=== PATIENT | male | born 1990 | race Caucasian/White ===

== ENCOUNTER 2016-09-04 18:27 | Emergency (ER) | payer OTHER ==
[~2016-09-04] VITALS: Ht 185.4 cm; Wt 83.9 kg
[~2016-09-04 18:27] MED LIST: HYDROCODONE-APA1 TA1 PO
[2016-09-04 18:30] VITALS: BP 130/77
[2016-09-04] MEDS ORDERED: BACTRIM DS TAB1 EACH PO (18:32)
[2016-09-04] MEDS ORDERED: ULTRAM 50MG TAB50 MG PO (18:44)
[2016-09-04] MEDS ORDERED: NAPROSYN500 MG PO (18:44)
== END 2016-09-04 18:56 | disposition home or self-care (01) ==
LOC: ER 18:27
DX: L02.412 Cutaneous abscess of left axilla (principal); F17.210 Nicotine dependence, cigarettes, uncomplicated; Z88.6 Allergy status to analgesic agent

== ENCOUNTER 2016-10-02 20:16 | Emergency (ER) | payer OTHER ==
[~2016-10-02 20:16] MED LIST changes: +BACTRIM DS TAB1 EACH PO; +NAPROSYN500 MG PO; +ULTRAM 50MG TAB50 MG PO
[2016-10-02 20:25] VITALS: BP 144/85
== END 2016-10-02 20:58 | disposition left against medical advice (07) ==
LOC: ER 20:16
DX: M54.9 Dorsalgia, unspecified (principal); Z53.21 Procedure and treatment not carried out due to patient leaving prior to being seen by health care provider

== ENCOUNTER 2016-12-07 18:50 | Emergency (ER) | payer OTHER ==
[~2016-12-07] VITALS: Ht 185.4 cm; Wt 81.7 kg
[~2016-12-07 18:50] MED LIST changes: +ZYRTEC10 MG PO
[2016-12-07 19:44] LABS: ABSOLUTE NEUTROPHILS 9.1 thou/uL (1.4-8.2); BASOPHILS 0.6 % (0.0-2.0); EOSINOPHILS 0.3 % (0.0-3.0); HEMATOCRIT 36.7 % (42.0-52.0); HEMOGLOBIN 12.5 gm/dL (14.0-18.0); LYMPHOCYTES 18.9 % (24.0-44.0); MCHC 34.2 g/dL (28.0-37.0); MCV 96.7 fL (80.0-100.0); MONOCYTES 5.6 % (1.0-8.0); PLATELET COUNT 210 thou/uL (150-400); POLYS 74.6 % (36.0-66.0); RBC 3.79 mil/uL (4.50-6.00); RDW 13.6 % (10.5-14.5); WBC 12.3 thou/uL (4.0-11.0)
[2016-12-07 19:45] LABS: MANUAL DIFF NO
[2016-12-07 19:52] LABS: CALCIUM 8.5 mg/dL (8.5-10.1); CREATININE 0.7 mg/dL (0.7-1.3); POTASSIUM 3.7 mmol/L (3.5-5.1)
[2016-12-07 19:57] LABS: ALBUMIN 3.8 g/dL (3.4-5.0); TOTAL BILIRUBIN 0.3 mg/dL (<0.1-1.0); TOTAL PROTEIN 7.1 g/dL (6.4-8.2)
[2016-12-07] MEDS ORDERED: SENNA8.6 MG PO (20:17)
[2016-12-07] MEDS ORDERED: BACTRIM DS TAB1 EACH PO (20:17)
[2016-12-07] MEDS ORDERED: NORCO 5-325 TA1 EACH PO (20:20)
[2016-12-07 20:40] VITALS: BP 117/77
== END 2016-12-07 20:42 | disposition home or self-care (01) ==
LOC: ER 18:50
PROVIDERS: Physician Assistant
DX: L03.113 Cellulitis of right upper limb (principal); F17.210 Nicotine dependence, cigarettes, uncomplicated; F10.99 Alcohol use, unspecified with unspecified alcohol-induced disorder; Z88.6 Allergy status to analgesic agent

== ENCOUNTER 2017-02-06 16:40 | Emergency (ER) | payer OTHER ==
[~2017-02-06] VITALS: Ht 185.4 cm; Wt 81.7 kg
[~2017-02-06 16:40] MED LIST changes: +NORCO 5-325 TA1 EACH PO; +NORFLEX100 MG PO; +PREDNISONE 10 M10 MG PO; +SENNA8.6 MG PO
[2017-02-06 16:55] VITALS: BP 136/79
[2017-02-06] MEDS ORDERED: HYDROCODONE-AP1 EAC6 PO (17:37)
== END 2017-02-06 17:35 | disposition home or self-care (01) ==
LOC: ER 16:40
DX: K08.89 Other specified disorders of teeth and supporting structures (principal); F17.210 Nicotine dependence, cigarettes, uncomplicated; F10.99 Alcohol use, unspecified with unspecified alcohol-induced disorder

== ENCOUNTER 2020-03-02 07:08 | Inpatient (IN) | payer OTHER ==
[~2020-03-02] VITALS: Ht 182.9 cm; Wt 75.3 kg
[2020-03-02] VITALS (7 sets, daily range): BP systolic 79–114; BP diastolic 38–68
[~2020-03-02 07:08] MED LIST changes: +HYDROCODONE-AP1 EAC6 PO
[2020-03-02 07:34] LABS: ABSOLUTE NEUTROPHILS 4.9 thou/uL (1.4-8.2); BASOPHILS 0.5 % (0.0-2.0); EOSINOPHILS 1.3 % (0.0-3.0); HEMATOCRIT 34.8 % (42.0-52.0); HEMOGLOBIN 11.9 gm/dL (14.0-18.0); LYMPHOCYTES 28.1 % (24.0-44.0); MCHC 34.3 g/dL (28.0-37.0); MCV 99.4 fL (80.0-100.0); MONOCYTES 6.9 % (1.0-8.0); PLATELET COUNT 164 thou/uL (150-400); POLYS 63.2 % (36.0-66.0); RDW 13.9 % (10.5-14.5); WBC 7.8 thou/uL (4.0-11.0)
[2020-03-02 07:41] LABS: HCO3 20.8 mmol/L (22.0-26.0); PCO2 36.9 mmHg (35.0-45.0); pH 7.368 (7.360-7.450); sO2 99.8 % (92.0-98.0)
--- NOTE | 2020-03-02 07:43 | NUR ---
SPOKE WITH TRINITY GALEANA AT POISON CONTROL. RECEIVED INFORMATION TO PROVIDE SYMPTOMATIC CARE. RELAYED INFORMATION TO DR. SORTO.
[2020-03-02 07:44] LABS: CALCIUM 7.4 mg/dL (8.5-10.1); CREATININE 0.9 mg/dL (0.7-1.3); POTASSIUM 3.5 mmol/L (3.5-5.1)
[2020-03-02 07:51] LABS: ALBUMIN 2.7 g/dL (3.4-5.0); MAGNESIUM 1.8 mg/dL (1.8-2.4); TOTAL BILIRUBIN 0.4 mg/dL (0.2-1.0); TOTAL PROTEIN 5.1 g/dL (6.4-8.2)
--- NOTE | 2020-03-02 08:59 | EKG ---
[facility] [place] [address] ELECTROCARDIOGRAM REPORT Name: MILANA TA Room #: [facility].#: [id number] Admission: 03/02/20 Attend Phys: Discharge: Date of : 89 Report #: [id number] THIS REPORT FOR: cc: Ksenia Salvador MD, Melanie MD Lundgren,Jovani De León MD [facility] ~ THIS REPORT FOR: //name// [facility] ED Test Date: 2020-03-02 Test Time: 07:13:45 Pat Name: MILANA TA Department: Room: Gender: Nursing Service Administrator: [facility] : 1990 Requested By: Kristopher Carter Order Number: [id number] MD: Jovani Terry Measurements Intervals [place] Rate: 95 P: 71 CO: 151 QRS: 84 QRSD: 104 T: 69 QT: 414 QTc: 521 Interpretive Statements Sinus rhythm Ventricular bigeminy RSR' in V1 or V2, right VCD No previous ECG available for comparison Electronically Signed On 03-02-2020 8:59:33 CDT by Jovani Terry [email or web address] <ELECTRONICALLY SIGNED> By: Jovani Terry MD, [facility] 03/02/20 0859 2 2 Jovani Terry MD, [facility] /EPI
--- NOTE | 2020-03-02 09:43 | NUR ---
ATTEMPTED TO CALL REPORT AT 09:38, ABLE TO GET AHOLD OF RN. RN STATED SHE NEEDED TO CALL PROVIDER AND HELP DESK INTERNSHIP TO DETERMINE IF PT WAS APPROPRIATE FOR CCU INSTEAD OF ICU. CALLED HELP DESK INTERNSHIP GAYLE TO INFORM, STATED SHE WILL CONTACT HOSPITALIST
[2020-03-02 10:48] LABS: URINE BILIRUBIN NEGATIVE (Negative); URINE BLOOD TRACE (Negative); URINE CLARITY CLEAR; URINE COLOR YELLOW; URINE GLUCOSE-RANDOM* NEGATIVE (Negative); URINE KETONES NEGATIVE (Negative); URINE LEUKOCYTES-REFLEX NEGATIVE (Negative); URINE NITRITE-REFLEX NEGATIVE (Negative); URINE PROTEIN (DIPSTICK) NEGATIVE (Negative); URINE SPECIFIC GRAVITY 1.015 (1.005-1.035)
[2020-03-02 10:54] LABS: AMP/METHAMP Negative (Negative); BARBITURATES Negative (Negative); BENZODIAZEPINES POSITIVE (Negative); COCAINE Negative (Negative); METHADONE Negative (Negative); OPIATES Negative (Negative); PCP Negative (Negative)
--- NOTE | 2020-03-02 10:59 | NUR ---
REC PT FROM ED ON CART, REPORTS FROM ED OF NO RESPONSIVENESS SAVE FOR TO PAINFUL STIMULI. SPOKE WITH HOUSE SUPV AND PHYSICIAN IN DEPTH CONCERNING PLACEMENT HERE VS ICU. WAS TOLD WE'LL HAVE A ONE TO ONE SITTER UNTIL DR. MAYO EVALUATES, COMM W/PHYSICIAN TO PUT IN ORDER AND ID CANCEL AFTER DR. MARIA ESTHER KAPLAN, IF APPLICABLE. MANN PRIETO SAID TO USE ONE OUR BAND SALVAGER TEMPORARILY. 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 REMOVED SNEAKERS, HE ASKED FOR SODA, GOT THAT AND WATER, SHOWED HIM BED AND CALL LIGHT CONTROLS YET HIS EYES CLOSED AGAIN AND NOW HE'S SLEEPING. WILL DO ADMISSION WHEN HE'S MORE ALERT AND RESPONSIVE. VS BEING TAKEN, PAPERS WILL BE SIGNED, APPLICABLE. WILL CONTINUE TO MONITOR. SEE SEPARATE INTERVENTIONS FOR ASSESSMENTS.
--- NOTE | 2020-03-02 15:54 | NUR ---
CALLED DR. MENDEZ OFFICE TO ASK IF WE NEED AN AFFIDAVIT ON PT (PER REHEATER), LEFT MESSAGE WITH HER OFFICE WHICH IS ALSO ENDOCRINOLOGY.
--- NOTE | 2020-03-02 16:46 | NUR ---
PT WOKE UP LONG ENOUGH TO ANSWER A FEW QUESTIONS FOR ADMISSION'S BLANK SPOTS/NOT ABLE TO ASSESS. ANSWERS SLOWLY, AND HESITATES. WANTS TO KNOW WHERE HIS CAR IS, STATES HE IS ALMOST HOMELESS, HASN'T HAD AN APPETITE TO EAT LATELY, COMM W/PHYSICIAN ON A DIET ORDER AND POISEN CONTROL ASKS FOR TYELNOL/SALICYLATE LABS. PT STILL IN ONE ON ONE, LETHARGIC YET WATCHING TELEVISION AND DRINKING LIQUIDS, B/P'S STILL LOW, PHYSICIAN AWARE. ENCOURAGED AIDE TO CALL WITH ANY NEEDS PT HAS
--- NOTE | 2020-03-02 17:45 | NUR ---
I have reviewed the documentation by FRANCO BRAND from 03/02/20 to 03/02/20 and I concur with it. KAYLIE AMBRIZ
[2020-03-02] MEDS ORDERED: ALPRAZOLAM XR3 MG PO (18:20)
--- NOTE | 2020-03-02 19:07 | NUR ---
FOUND OUT THERES A FORM CALLED HOSPITAL SITTER JUSTIFICATION NEEDED. COMM W/DR. NAYLOR WELL LVM WITH DR. MAYO. ALSO COMM W/HOUSE SUPV TO SIGN DAY HOUSE SUPV WASN'T AWARE WE JUST FOUND OUT THE NEED FOR THE FORM. GAVE REPORT TO NIGHT RN
[2020-03-03 05:28] VITALS: BP 107/53
--- NOTE | 2020-03-03 05:51 | NUR ---
progress pt remains drowsy vss. slept most of vss, bp wnl. pulse steady and all peripheral pulses progress lungs clear, pt up with assist of one for safety. pt only responded to painful stumulu. vss skin c/d/i no areas of breakdown noted. sitter at bedside. pt slept all noc up to toliet a few times with no difficulty. pt hopes to be transferred to a psych facility for mental health concerns.
--- NOTE | 2020-03-03 08:00 | NUR ---
PT AWAKENS WHEN I SAY HIS NAME. PT STATES HE IS AT [facility] , AND IS ORIENTATED TO SELF. FALLS BACK ASLEEP WHEN ASSESSING PT. SITTER AT BEDSIDE.
[2020-03-03 08:17] VITALS: BP 102/60
--- NOTE | 2020-03-03 08:51 | NUR ---
PT IS AWAKE AND TALKING WITH NURSE. WOULD LIKE TO CONTACT HIS MOTHER AND LET HER KNOW HE IS HERE. TOLD HIM HE CAN CALL HER FROM MY PHONE IF HE WOULD LIKE. STARTING ASKING HOW LONG WE THING HE WILL BE HERE AND IF THEY NEED TO DO ANYMORE TESTS. TOLD HIM IT IS UP TO THE PSYCH DRSandro WHEN HE WILL LEAVE AND SINCE HE IS AWAKE THEY WILL BE ABLE TO EVALUATE HIM. STATES HE WILL CALL HIS MOM LATER AFTER KNOWING MORE INFORMATION.
--- NOTE | 2020-03-03 10:00 | NUR ---
CALLED ANSWERING SERVICE FOR DR. MAYO TO NOTIFIY HER THAT PT IS AWAKE AND CONVERSING PER DR. NAYLOR ON HIS ASSESSMENT.
[2020-03-03 12:21] VITALS: BP 102/63
--- NOTE | 2020-03-03 12:30 | NUR ---
PT ATTEMPTED TO CONTACT MOTHER AND SISTER WITH PHONE IN THE ROOM. NO ANSWER. MESSAGE LEFT BY PT FOR HIS MOTHER.
--- NOTE | 2020-03-03 13:39 | NUR ---
AMBER STATES THAT PTS MOM CALLED BACK AND HE TALKED WITH HER.
--- NOTE | 2020-03-03 15:58 | NUR ---
DR. MAYO IN TO SEE PT
[2020-03-03 17:24] VITALS: BP 111/69
--- NOTE | 2020-03-03 17:41 | NUR ---
PT AWAKEND DURING THE DAY. HAS BEEN COVERSATING. DR. MAYO STATES PT NEEDS TO STAY. PT IS AGREEABLE. AFFIDAVIT ON THE CHART FROM DR. MAYO. STATES IT WILL MOST LIKELY BE THURSDAY BEFORE PT IS TRANSFERRED TO AN INPATIENT PSYCH FACILITY. CONTINUE WITH SITTER. MOTHER OF PATIENT IS ALLOWED TO CALL BUT NO VISITORS AT THIS TIME.
[2020-03-03 20:45] VITALS: BP 111/58
--- NOTE | 2020-03-04 04:19 | NUR ---
PATIENT IS PROGRESSING SLOWLY IN HIS CARE PLAN. VITAL SIGNS STABLE WITH PATIENT HAVING NO COMPLAINTS OF PAIN OR NAUSEA. PATIENT IS FULLY ORIENTED BUT ANXIOUS. HE IS ABLE TO CALL APPROPRIATELY FOR NEEDS. MULTIPLE HOURS OF UNINTERRUPTED SLEEP. PATIENT IS SOFT SPOKEN AND HAD NO INTEREST IN TALKING TO THIS NURSE REGARDING FEELINGS. HE IS ANXIOUS FOR PROBABLE DISCHARGE TO INPATIENT PSYCH FACILITY SOON. PATIENT MONITORED BY SITTER THROUGHOUT SHIFT. CONTINUE PLAN OF CARE.
[2020-03-04 04:42] VITALS: BP 93/52
[2020-03-04 04:48] LABS: CALCIUM 8.1 mg/dL (8.5-10.1); CREATININE 0.8 mg/dL (0.7-1.3); MAGNESIUM 2.2 mg/dL (1.8-2.4); POTASSIUM 3.5 mmol/L (3.5-5.1)
[2020-03-04 08:11] VITALS: BP 94/66
[2020-03-04 12:00] VITALS: BP 108/85
[2020-03-04 15:20] VITALS: BP 106/59
[2020-03-04 16:00] VITALS: BP 131/55
--- NOTE | 2020-03-04 17:31 | NUR ---
ASSUMED CARE OF PT AT SHIFT CHANGE. ASSESSMENTS CHARTED. MEDS GIVEN PER AUG. PT A&OX4. SLEPT A LOT, BUT WHEN AWAKE WAS ALERT AND RESPONDED APPROPRIATELY. NO DISTRESS OR BEHAVIORS OBSERVED DURING SHIFT. SITTER IN ROOM ENTIRE SHIFT. WILL CONTINUE TO MONITOR AND FOLLOW POC.
[2020-03-04 19:18] VITALS: BP 101/68
--- NOTE | 2020-03-05 04:48 | NUR ---
PATIENT IS PROGRESSING SLOWLY IN HIS CARE PLAN. VITAL SIGNS STABLE WITH PATIENT HAVING NO COMPLAINTS OF PAIN OR NAUSEA THROUGHOUT SHIFT. FULLY ALERT AND ORIENTED BUT ANXIOUS, PATIENT IS ABLE TO CALL APPROPRIATELY FOR NEEDS AND PARTICIPATE IN CARE. FALL PRECAUTIONS REMOVED DUE TO PATIENTS INCREASED STRENGTH AND BALANCE WHEN AMBULATING. SITTER WITH PATIENT THROUGHOUT SHIFT WITHOUT INCIDENT. PATIENT IS ANXIOUS FOR EXPECTED DISCHARGE TO FACILITY SOON. CONTINUE PLAN OF CARE.
[2020-03-05 05:26] VITALS: BP 97/58
[2020-03-05 08:15] VITALS: BP 103/83
--- NOTE | 2020-03-05 09:56 | NUR ---
Assess due to pt with possible unintentional wt loss 2-13 lb and decreased po. Admit with SI, xanax overdose. Psych hx. Now eating 100% of meals and likely discharge to inpatient psych soon. Low nutrition risk
--- NOTE | 2020-03-05 16:10 | NUR ---
FAXED REFERRAL TO [facility] RECEIVED CONFIRMATION FAXED REFERRAL TO [facility] RECEIVED CONFIRMATION. FAXED REFERRAL TO [facility] RECEIVED CONFIRMATION FAXED REFERRALL TO [facility] RECEIVED CONFIRMATION SW TO F/U WITH FACILITIES.
--- NOTE | 2020-03-05 17:38 | NUR ---
Patient admits with SI, failed attempt. Patient lives alone in [place]. He reports fired recently from job and seeking employment currently. He has rec inpatient psych treatment in the past at [facility]. Discussed seeking inpatient tx for patient today. Patient does not have health insurance.Referrals to [facility] at capacity. [facility] report may have bed avail. Called [facility] at approx 1600. they both responded they have not reviewed referral at that time. Updated patient. COnt to attempt to seek inpatient tx.
--- NOTE | 2020-03-05 17:43 | NUR ---
Patient to dc home. Phys reports he has no way to dc home he needs transport. Sp with patient, verified address. Arranged [facility] for [facility]. [facility] reports they will be assured patient makes inside fine as patient lives alone. Patients wc in room. HH ordered and patient current with [facility]. DC discharge planner faxed orders. No further needs.
[2020-03-05 18:41] VITALS: BP 111/68
--- NOTE | 2020-03-05 19:54 | NUR ---
RECEIVED PT'S CARE AROUND 0720; PT. ON BED; RESTING WITH EYES CLOSED; EQUAL CHEST RISING NOTICED; SB ON THE MONITOR; DURING AM ASSESSMENT C/O PAIN OVER RLE; PHYSICIAN NOTIFIED; ST. CURRENTLY SMOKER; NICOTINE PATCH REQUESTED; PAIN RE-ASSESSMENT PT. RESTING WITH EYES CLOSED; EDUCATED ABOUT PHONE CALLS; ST. UNDERSTANDING; SB ON THE MONITOR; ABLE TO AMBULATE; ASSESSMENT CHARGED; FOLLOWING POC; PASSED ON REPORT;
--- NOTE | 2020-03-06 03:48 | NUR ---
ASSESSMENT: PT REMAIN ALERT AND ORIENT TIMES FOUR, SOME FORGETFULNESS NOTED. CONVERSATION IS APPROPRIATE. REMAIN CALM AND PLEASANT DURING THE SHIFT. REQUESTED TRAZADONE FOR SLEEP. SLEPT MOST OF THE NIGHT. SITTER REMAINED AT THE BEDSIDE. VSS, AFEBRILE. SR-SB WHEN SLEEPING. DENIES PAIN. INTRIQUED ABOUT IV, EXPLAINED THAT THE IV HAS TO REMAIN IN CASE IT IS NEEDED FOR MEDS. UP WITH SBA. SLOW PROGRESS TOWARDS DC GOALS, WILL CONTINUE TO MONITOR.
[2020-03-06 08:29] VITALS: BP 96/58
--- NOTE | 2020-03-06 15:35 | NUR ---
[facility]. [facility] reports need updated information. Dr Sheth completed updated progress notes faxed to [facility] for review.
--- NOTE | 2020-03-06 16:19 | NUR ---
FAXED UPDATED LABS TO [facility] RECEIVED CONFIRMATION.
--- NOTE | 2020-03-06 18:23 | NUR ---
ASSUMED CARE OF PT AT SHIFT CHANGE. ASSESSMENTS CHARTED. MEDS GIVEN PER AUG. PT A&OX4, NO C/O PAIN. PT CALM AND APPROPRIATE DURING SHIFT. SITTER IN ROOM AT ALL TIMES. PT WANTING TO KNOW WHERE HE WILL BE GOING FOR INPT TX, CM STILL WORKING ON IT. WILL CONTINUE TO MONITOR AND FOLLOW POC.
[2020-03-06 20:15] VITALS: BP 110/63
--- NOTE | 2020-03-07 04:19 | NUR ---
ASSUMED CARE OF PATIENT AT 1900. PATIENT CONTINUES A 1:1 DUE TO SI. PATIENT REQUESTED PRN TRAZADONE AT HS. FIRST DOSE INEFFECTIVE AND ADMINISTERED SECOND DOSE OF TRAZADONE AT PATIENT REQUEST AND ORDERED. PATIENT COMPLIANT WITH CARES AND HAS PLEASANT AFFECT. PATIENT APPEARS TO BE PROGRESSING TOWARDS GOALS.
[2020-03-07 05:47] VITALS: BP 96/52
[2020-03-07 07:23] VITALS: BP 107/58
--- NOTE | 2020-03-07 11:09 | NUR ---
TALKED WITH DR. MAYO, STATES PT CAN CALL THE COURT AND NOTIFY THEM OF HIS INPATIENT STATUS.
--- NOTE | 2020-03-07 13:33 | NUR ---
At this time [facility]. [facility] reports may have bed later today they will review referral sent.
[2020-03-07 15:46] VITALS: BP 115/62
--- NOTE | 2020-03-07 16:35 | NUR ---
PTS MOTHER МАРИЯ CALLED. TALKED WITH HER REGUARDING PTS. SHE STATED THAT SHE HAD COME IN FOR HER SON TO SIGNS SOME THINGS OVER TO HER. I TOLD HER THAT SINCE HE IS HERE UNDER A MENTAL HEALTH CAPACITY HE CAN NOT LEGALLY SIGN ANY PAPERWORK UNTIL HE IS CLEARED BY THE DR. OR DISCHARGED. STATES HER UNDERSTANDING. WOULD LIKE TO TALK WITH DR. MAYO. TOLD HER I WOULD RELAY THE MESSAGE.
--- NOTE | 2020-03-07 16:39 | NUR ---
MESSAGE LEFT FOR DR. MAYO
--- NOTE | 2020-03-07 16:44 | NUR ---
beds cont at capacity updated patient no psych beds avail.
--- NOTE | 2020-03-07 18:16 | NUR ---
NO EVENTS THROUGHT THE DAY. STILL AWAITING PLACEMENT FOR INPATIENT MENTAL HEALTH. PT HAS BEEN PLEASENT. SITTER IN ROOM. PT SHOWERED TODAY. VSS. NO VOICED CONCERNS. TALKED WITH MOM ON THE PHONE TODAY. UPDATED ON PT. SEE PREVIOUS NOTES REGUARDING CONVERSATION.
--- NOTE | 2020-03-07 18:34 | NUR ---
МАРИЯ PTS MOM CALLED AND STRESSED TO ME THAT THE TITLE PROCESSOR TOLD HER THAT THE PTS DAD SUE TA WAS THERE TO SEE HIM TODAY AND HE SHOULD NOT BE VISITING HIM. TOLD МАРИЯ THAT [facility] DID NOT HAVE ANY VISITORS TODAY. SHE THEN STATES WELL THEY TOLD ME THAT SOMEONE WAS IN HIS ROOM. I THEN TOLD HER THAT [facility] HAS HAD A SITTER WITH HIM THAT IS ONE OF OUR STAFF MEMBERS AND NOT THE PTS FATHER SUE. SHE THEN GOES TO STATE, WELL IS THIS PERSON TELLING HIM THAT THEY ARE HIS DAD. MY REPLY TO THE MOTHER WAS THE PATIENT IS ALERT AND ORIENTATED X4, COMPLETELY INTACT AND WOULD KNOW IF HIS FATHER WAS IN THE ROOM WITH HIM OR NOT. МАРИЯ THEN GOES TO SAY, WELL THE GIRL AT THE TITLE PROCESSOR SAID THAT SUE BOLDEN WAS THERE TODAY AND HIS ONLY VISTOR HE CAN HAVE. WENT THROUGH THE CHART AND LOOKED UP PTS DESIGNATED VISITOR. PT HAS NO ONE LISTED DUE TO HIS ADMITTING DIAGNOSES. EXPLAINED TO THE MOM МАРИЯ THAT HE HAS NO VISITORS LISTED OF THIS TIME. I WAS ON THE FLOOR ALL DAY AND SAW NO MALE IN HIS ROOM TODAY WITH HIM. I TOLD HER I WOULD CALL THE TITLE PROCESSOR AND TRY TO FIGURE OUT THE SITUATION. WHEN I CALLED THE ER DESK, NO ONE KNEW WHAT I WAS TALKING ABOUT.
[2020-03-07 19:25] VITALS: BP 113/70
--- NOTE | 2020-03-08 02:00 | NUR ---
ASSUMED CARE OF PATIENT AT 1900. PATIENT CONTINUES ON 1:1. PATIENT HAS NO BEHAVIORS AND IS COOPERATIVE WITH CARES. PATIENT SLEEP IMPROVED WITH NEW TRAZADONE ORDER. WILL CONTINUE TO MONITOR.
[2020-03-08 04:00] VITALS: BP 99/64
[2020-03-08 08:11] VITALS: BP 109/31
--- NOTE | 2020-03-08 15:10 | NUR ---
[facility] and [facility] no beds avail. [facility] unable to accept due to acuity of adult unit. referral to [facility] in [place] and [place] behavioral health unit. They are reviewing. updated patient
--- NOTE | 2020-03-08 16:56 | NUR ---
[facility] is reviewing patient information. May be accepting after hours. IF accepted they will call unit. [employer] form on chart. Chart copied. Request number to fax orders and report. Arrange [employer]. Notify family of dc.
--- NOTE | 2020-03-08 17:05 | NUR ---
PT TALKING WITH MOM ON PHONE. PT IS NEEDING TO SIGN A PIECE OF PAPER STATING THAT HIS MOM CAN GET HIS VEHICLE THAT WAS TOWED. WE WILL GET A NOTEARY HERE TOMORROW FOR HIM TO SIGN A NOTE SO HIS MOTHER CAN GET IT TO THE CAR LOT TO GET HIS CAR.
--- NOTE | 2020-03-08 17:53 | NUR ---
PT AWAITING PLACEMENT FOR INPATIENT MENTAL HEALTH. TALKED WITH МАРИЯ PTS MOTHER ON THE PHONE. PT WAS ABLE TO TALK WITH HER. WILL NEED TO GET SIGNED DOCUMENT TO MOTHER TOMORROW. SEE PREVIOUS NOTE REGUARDING. WAS TOLD THAT [facility] IS LOOKING OVER PTS PACKET FOR ACCEPTANCE.
[2020-03-08 18:58] VITALS: BP 104/62
--- NOTE | 2020-03-09 04:29 | NUR ---
PT WILL NEED NOTE NOTORIZED FOR MOTHER TO NET WASHER HIS CAR TODAY, VSS, PT RESTING QUIETLY THROUGH THE NOC, NO C/O PAIN, SITTER AT BEDSIDE, RICARDO FROM [facility] CALLED AT 0400 AND STATED THEY WOULN'T HAVE ANY MALE BEDS AVAILABLE TODAY UNLESS THEY HAD AN UNEXPECTED DISCHARGE, HIS NAME IS STILL ON THE WAITING LIST. WILL CON'T TO MONITOER PER PPOC.
[2020-03-09 08:42] VITALS: BP 94/55
--- NOTE | 2020-03-09 13:03 | NUR ---
cm f/u w/lisbeth; referral is still pending. resent clinicals to [facility], may have bed later today.
--- NOTE | 2020-03-09 16:40 | NUR ---
SW reviewed chart. Pt remains medically stable for transfer to an inpt psych facility. SW [facility]: [facility]: Declined pt for admission [facility]: Spoke with Shavon. Pt has been declined. [facility]: Spoke with Dagmar and faxed info for review. ( ) [facility]: Paged bed coordinator ([phone]) [facility]: Spoke with Shavon. Not accepting pts today. Requested call on Thursday to check status ( ) [facility]: Spoke with Celeste. Faxed info for review. ( ) [facility]: left voice message for bed coordinater (PHone: [phone]) [facility]: Spoke with Bhavani. No beds available at the current time. Requested to check bed status later this evening or tomorrow. ( ) [facility]: Not accepting any new referrals until midnight. ( FaxL [phone]) [facility]: Not accepting adults in their behavioral health unit at this time. [facility]: Not accepting any referrals/admissions until Thursday. Affidavit is on pt's chart. Will need chart copied once pt has been accepted to a facility. [employer] and EMTALA form placed on pt's chart. SW is following to assist as needed with discharge planning.
--- NOTE | 2020-03-09 18:12 | NUR ---
ASSUMED CARE AT CHANGE OF SHIFT. ALERT X4, REQUIRES SITTER FOR SI. WAITING [facility] INPATIENT BED. SIGNED NOTARY GIVEN TO MOTHER. CONTINUE TO MONITOR
[2020-03-09 18:52] VITALS: BP 103/59
--- NOTE | 2020-03-10 06:50 | NUR ---
assumed pt care at the change of shift, pt awake, alert and oriented, pleasant and in good spirits, sitter in the room 1:1, assessments as charted, denied having concerns, vss, no acute distress noted, slept well through the night, will pass on report
[2020-03-10 07:55] VITALS: BP 82/41
--- NOTE | 2020-03-10 14:14 | NUR ---
AAOX4. NO C/O. SITTER AT BEDSIDE. TRANSFERRING TO [facility] HE IS [facility]. REPORT CALLED TO SHEILA COFFEY.
[2020-03-10 15:00] VITALS: BP 92/40
--- NOTE | 2020-03-11 04:41 | NUR ---
Pt. rested quietly at intervals during the night when checked on during frequent rounds. No suicidal ideations and there is a sitter with him. He offers no c/o pain or discomfort. Plan is to await discharge when a bed becomes available in a psych. jara.
[2020-03-11 08:30] VITALS: BP 101/61
--- NOTE | 2020-03-11 11:41 | NUR ---
Received awake on bed. Due
--- NOTE | 2020-03-11 11:47 | NUR ---
Received awake on bed. Due medications given as prescribed, no difficulty swallowing. With 1:1 sitter at bedside; no agression or restlessness noted; pt polite to staff. On MS, not on telemetry; no complains of chest pain, crushing sensation and heaviness. On room air. Vital signs stable. On regular diet- tolerating well; no nausea, no vomiting and no abdominal pain noted. Continent of bowel and bladder, able to go to the toilet independently. Falls bundle in place. With R FA SL- intact and flushing well. SI protocol observed. Still a/w in patient psych placement- CM aware. To continue monitoring patient.
[2020-03-11 15:40] VITALS: BP 97/53
[2020-03-11 15:43] VITALS: BP 103/53
[2020-03-11 15:46] VITALS: BP 111/66
[2020-03-11 20:00] VITALS: BP 117/78; BP 120/53; BP 121/82
--- NOTE | 2020-03-12 04:19 | NUR ---
Pt. requested trazadone for sleep and med given (see emar) with good results. He slept quietly during the night when checked on during frequent rounds. he continues to c/o seeing spots at times when getting up. Orthostatic Bp's are stable. No suicide ideations voiced and sitter at the bedside all shift. Continue to plan for discharge when a bed becomes available for psych in house.
--- NOTE | 2020-03-12 08:29 | NUR ---
followup: continues to eat 100% meals and wt is up 2 lb. Awaiting inpatient psych bed for discharge. Remains low nutrition risk
--- NOTE | 2020-03-12 16:08 | NUR ---
INPATIENT PSYC PLACEMENT HASN'T BEEN FOUND OF THIS NOTE. DR. MAYO INDICATED THAT PT WOULD BE MEDICALLY STABLE TO DISHCARGE TO THE CARE OF HIS MOTHER. PHYSICIAN HAS COMPLETED DC ORDERS. PT IS TO DC HOME TO SELF CARE. CM TO WORK WITH NURSE TO NOTIFY PT AND HIS MOTHER WHO DR. MAYO INDICATED WOULD BE PROVIDING TRANSPORT THIS EVENING.
[2020-03-12 16:26] VITALS: BP 121/82
[2020-03-12 18:09] VITALS: BP 121/82
--- NOTE | 2020-03-12 20:36 | NUR ---
PT WAS 1:1 SITTER CASE, STAFF MEMBER MEENAKSHI SAT WITH PT ENTIRE SHIFT FOR 1 ON 1 OBSERVATION. PT CALM, COOPERATIVE AND A&OX4. PT GIVEN D/C PAPERWORK AND WAS WHEELED DOWN TO SECURITY WHERE HE WAS GIVEN HIS PERSONAL BELONGINGS. PT WAS THEN GIVEN A CAB VOUCHER WHERE HE WAS D/C HOME. PT ATE 100% OF ALL 3 MEALS TODAY. PT DENIED PAIN AND STATES NO ANXIETY. DR. MAYO SPOKE WITH PT'S MOM ABOUT D/C. PT LEFT ROOM AT 1845 VIA WHEELCHAIR AND TAKEN TO CAB.
--- NOTE | 2020-03-13 07:41 | EKG ---
[facility] [place] [address] [place] [address] ELECTROCARDIOGRAM REPORT Name: MILANA TA Room #: 449-I DIS IN M.R.#: [id number] Admission: 03/02/20 Attend Phys: Adrien England MD Discharge: 03/12/20 Date of : 89 Report #: [id number] THIS REPORT FOR: cc: Ksenia Salvador MD, Melanie MD Santiago,Vega YIP [facility] ~ THIS REPORT FOR: //name// [facility] Test Date: 2020-03-12 Test Time: 17:09:25 Pat Name: MILANA TA Department: Room: [facility] I Gender: M Audio Specialist: MIKE : 1990 Requested By: Rick Bay Order Number: [id number] MD: Vega Medrano Measurements Intervals [place] Rate: 71 P: 61 [place]: 151 QRS: 76 QRSD: 91 T: 40 QT: 367 QTc: 399 Interpretive Statements Sinus rhythm J Point elev, probable normal early repol pattern Tall T waves, probably normal variant Compared to ECG 03/02/2020 07:13:45 ST (T wave) deviation now present T-wave abnormality now present Ventricular premature complex(es) no longer present Electronically Signed On 03-13-2020 7:41:11 CDT by Vega Medrano [email or web address] <ELECTRONICALLY SIGNED> By: Vega Medrano MD, [facility] 03/13/20 0741 08 170 Vega Medrano MD, [facility] /EPI
== END 2020-03-12 20:40 | disposition home or self-care (01) | DRG 917 ==
LOC: ER 07:08 → EROBS 10:17 → 2N 10:45 → 4W 03-10 13:55
PROVIDERS: Emergency Medicine; Nurse Practitioner Family; ADMIT Internal Medicine; ATTEND Internal Medicine
DX: T42.4X2A Poisoning by benzodiazepines, intentional self-harm, initial encounter (principal); G93.41 Metabolic encephalopathy; R45.851 Suicidal ideations; F41.9 Anxiety disorder, unspecified; F32.9 Major depressive disorder, single episode, unspecified; F20.9 Schizophrenia, unspecified; Z20.828 Contact with and (suspected) exposure to other viral communicable diseases; Y92.89 Other specified places as the place of occurrence of the external cause; Z79.899 Other long term (current) drug therapy; Z88.8 Allergy status to other drugs, medicaments and biological substances
CPT/HCPCS: 10047; 10081; 10797

== ENCOUNTER 2020-04-14 23:08 | Emergency (ER) | payer OTHER ==
[~2020-04-14] VITALS: Ht 182.9 cm; Wt 86.2 kg
[~2020-04-14 23:08] MED LIST changes: +ALPRAZOLAM XR3 MG PO
[2020-04-14 23:42] LABS: ABSOLUTE NEUTROPHILS 3.7 thou/uL (1.4-8.2); BASOPHILS 0.9 % (0.0-2.0); EOSINOPHILS 1.8 % (0.0-3.0); HEMATOCRIT 40.5 % (42.0-52.0); HEMOGLOBIN 13.6 gm/dL (14.0-18.0); LYMPHOCYTES 41.6 % (24.0-44.0); MCH 33.1 pg (26.0-34.0); MCHC 33.6 g/dL (28.0-37.0); MCV 98.5 fL (80.0-100.0); MONOCYTES 7.9 % (1.0-8.0); PLATELET COUNT 266 thou/uL (150-400); POLYS 47.8 % (36.0-66.0); RBC 4.11 mil/uL (4.50-6.00); RDW 13.6 % (10.5-14.5); WBC 7.7 thou/uL (4.0-11.0)
[2020-04-14 23:44] LABS: ANION GAP 10 mmol/L (7-16); BUN 11 mg/dL (7-18); CALCIUM 8.5 mg/dL (8.5-10.1); CHLORIDE 101 mmol/L (98-107); CO2 27 mmol/L (21-32); GLUCOSE 97 mg/dL (74-106); POTASSIUM 3.9 mmol/L (3.5-5.1); SODIUM 138 mmol/L (136-145)
[2020-04-14 23:49] LABS: APTT 21.9 Seconds (24.5-32.8); PROTIME 10.3 Seconds (9.3-11.4)
[2020-04-14 23:55] LABS: SALICYLATE < 2.8 mg/dL (2.8-20.0)
[2020-04-14 23:58] LABS: ALBUMIN 4.1 g/dL (3.4-5.0); MAGNESIUM 2.1 mg/dL (1.8-2.4); SGOT 21 U/L (15-37); SGPT 18 U/L (30-65); TOTAL BILIRUBIN 0.4 mg/dL (0.2-1.0); TOTAL PROTEIN 7.5 g/dL (6.4-8.2); TROPONIN-I <0.06 ng/mL (<0.06)
[2020-04-15 00:35] LABS: AMP/METHAMP Negative (Negative); BARBITURATES Negative (Negative); BENZODIAZEPINES Negative (Negative); COCAINE Negative (Negative); METHADONE Negative (Negative); OPIATES Negative (Negative); PCP Negative (Negative)
[2020-04-15 01:23] VITALS: BP 142/86
--- NOTE | 2020-04-16 07:42 | EKG ---
[facility] [place] [address] ELECTROCARDIOGRAM REPORT Name: MILANA TA Room #: DEP [id number] Admission: 04/14/20 Attend Phys: Discharge: 04/15/20 Date of : 89 Report #: [id number] THIS REPORT FOR: cc: NO FAMILY PHYSICIAN or PCP NO FAMILY PHYSICIAN or PCP Jovani Terry MD [facility] THIS REPORT FOR: //name// [facility] ED Test Date: 2020-04-14 Test Time: 23:19:10 Pat Name: MILANA TA Department: Room: Gender: Senior Vice President And Chief Information Officer: MARITZA : 1990 Requested By: Bill Barragan Order Number: [id number] MD: Jovani Terry Measurements Intervals [place] Rate: 108 P: 71 [place]: 143 QRS: 77 QRSD: 104 T: 59 QT: 376 QTc: 504 Interpretive Statements Sinus tachycardia Ventricular bigeminy RSR' in V1 or V2, right VCD ST elev, probable normal early repol pattern Compared to ECG 03/12/2020 17:09:25 Ventricular premature complex(es) now present Electronically Signed On 04-16-2020 7:42:05 PLANNING ASSOCIATE by Jovani Terry [email or web address] <ELECTRONICALLY SIGNED> By: Jovani Terry MD, [facility] 04/16/20 0742 2319 2319 Jovani Terry MD, [facility] /EPI
== END 2020-04-15 01:23 | disposition home or self-care (01) ==
LOC: ER 23:08
PROVIDERS: Emergency Medicine
DX: R55 Syncope and collapse (principal); F10.129 Alcohol abuse with intoxication, unspecified; R00.8 Other abnormalities of heart beat; F17.210 Nicotine dependence, cigarettes, uncomplicated; Z88.8 Allergy status to other drugs, medicaments and biological substances; Y90.5 Blood alcohol level of 100-119 mg/100 ml